=== PATIENT | male | born 1970 | race African-American/Black ===

== ENCOUNTER 2016-09-05 11:33 | Emergency (ER) | payer SELFPAY ==
[2016-09-05 11:40] VITALS: TEMP 99; BMI 27.8
--- NOTE | 2016-09-05 12:06 | EDPRACDOC ---
- General Information Chief Complaint: Dyspnea/Resp distress Stated Complaint: SHORT OF BREATH Time Seen by Provider: 09/05/16 11:46 Information Source: Patient Mode Of Arrival: Car Home Medications: Home Medications Acetaminophen with Codeine [TYLENOL WITH CODEINE; [employer] with Codeine] 5 ml PO Q4-6H PRN #120 ml 09/05/16 Benzonatate [Tessalon] 100 mg PO TID #20 per 09/05/16 Prednisone [Deltasone, Orasone] 2 tabs PO DAILY #20 tab 09/05/16 Allergies/Adverse Reactions: Allergies Allergy/AdvReac Type Severity Reaction Status Date / Time No Known Allergies Allergy Verified 09/05/16 11:40 - History of Present Illness Symptoms Started: END JUN HPI: PT PRESENTS TODAY WITH COUGH X 6 WEEKS. PT STATES THAT THE COUGH IS WORSE AT NIGHT, MILD PRODUCTION OF PHLEGM. DENIES FEVER, SHOB, CP, ABD PAIN, N/V/D. STATES HE IS WORRIED BECAUSE HE HAS A HEAVY FAMILY HISTORY OF CANCER. NO APPARENT DISTRESS. Symptoms: Reports: Cough Recent Medications: Reports: None Relevant History Of: Reports: None Shortness of Breath: None Cough Frequency: Persistent Cough Description: Reports: Productive, Strong, Congested Rhinorrhea: Reports: None Ear Symptoms: Reports: None Associated Signs and Symptoms: Reports: Cough ED Past Medical History - History Reviewed Yes Nurses notes reviewed and agree except as marked - Patient Medical History Psychological History: Denies: Depression - Social Medical History Smoking Status: Light tobacco smoker (less than 5/day) EDM Review of Systems - Review of Systems ROS Negative Except as Marked: Yes All systems reviewed and were negative except as marked Constitutional: No Symptoms Reported Ears: No Symptoms Reported Throat: No Symptoms Reported Nose: No Symptoms Reported Respiratory: Cough Cardiovascular: No Symptoms Reported Gastrointestinal: No Symptoms Reported Neurological: No Symptoms Reported Musculoskeletal: No Symptoms Reported Integumentary: No Symptoms Reported - Physical Exam Constitutional: Alert (Awake), No apparent distress Oriented to: Time, Person, Place Last recorded Vital Signs: Last Vital Signs Temp 99.0 F 09/05/16 11:37 Pulse 94 09/05/16 11:37 Resp 20 09/05/16 11:42 BP 153/98 09/05/16 11:37 Pulse Ox 96 09/05/16 11:37 Oxygen Pulse Oxygen Saturation 96 O2 Device Oxygen Flow Rate Fraction of Inspired Oxygen ( FIO2) - HEENT Head: Normal Eye Exam: Normal Oropharynx: Normal Tympanic Membrane: Normal ENT EAC: Normal Nose: No Symptoms Reported Neck: Normal, Denies Pain, Midline - Respiratory/Cardiovascular Respiratory: Normal - CTA Cardiovascular: Normal - GI Palpation: Normal Tenderness: Non tender - Musculoskeletal Back: Normal Extremities: Normal - Integumentary Skin: Normal Lymphatics: Normal - Neurologic Cerebellar: Normal Mood Description: Normal Thought: Coherent Perception: Normal Decision Time to Discharge: 12:53 - Departure Disposition: Home Condition: Good Final Diagnosis: Cough Instructions: Chronic Cough (ED) Education/Counseling Given To: Patient Education/Counseling Given Regarding: Diagnosis, Treatment, Follow Up Referrals: None,No Provider [Primary Care Provider] - One Week JAMES KOO [NonStaff] - One Week Garry Santana II, MD [Staff Physician] - One Week Prescriptions: New Acetaminophen with Codeine [TYLENOL WITH CODEINE; [employer] with Codeine] 5 ml PO Q4-6H PRN #120 ml PRN Reason: Pain Benzonatate [Tessalon] 100 mg PO TID #20 per Prednisone [Deltasone, Orasone] 2 tabs PO DAILY #20 tab Additional Instructions: REST AND PLENTY OF FLUIDS. IF SYMPTOMS PERSIST, FOLLOW UP WITH PCP IN 2-3 DAYS OR FEEL FREE TO RETURN TO ED AT ANY POINT.
--- NOTE | 2016-09-05 12:50 | DIRPT ---
CLINICAL DATA: Cough for 6 weeks. Cough worse at night. EXAM: CHEST 2 VIEW COMPARISON: 08/06/2015. FINDINGS: Normal heart, mediastinum and denise. Clear lungs. No pleural effusion or pneumothorax. Skeletal structures are unremarkable. IMPRESSION: No active cardiopulmonary disease. Electronically Signed By: Sim Duron M.D. On: 09/05/2016 12:48
[2016-09-05 13:06] VITALS: BP 137/84; PULSE 77
== END 2016-09-05 13:04 | disposition home or self-care (01) ==
LOC: ED 11:33 → EDMC 13:04
DX: R05 Cough (principal); F17.210 Nicotine dependence, cigarettes, uncomplicated
CPT/HCPCS: 71020; 99282